=== PATIENT | male | born 1985 | race Caucasian/White ===

== ENCOUNTER 2016-10-28 18:37 | Emergency (ER) | payer MEDICAID ==
[2016-10-28 18:42] VITALS: RESP 16; O2SAT 95
[2016-10-28] MEDS ORDERED: IBUPROFEN 200 MG TAB PO ONE (19:10)
--- NOTE | 2016-10-28 19:14 | EDPHY ---
H & P Stated Complaint: Ran into wall playing [employer];inj to R clavicle,R side of face;no LOC Time Seen by Provider: 10/28/16 19:08 HPI/ROS: CHIEF COMPLAINT: Head injury, right shoulder injury HISTORY OF PRESENT ILLNESS: 31-year-old male arrives via private vehicle complaining of right shoulder and right hip injury after he was playing racquetball, hit the wall with his right shoulder impacted his head. Positive loss of consciousness. Positive amnesia. He is not sure specifically what happened. No midline C-spine pain. No peripheral paresthesia, weakness, numbness, dyspnea, chest pain, midline back pain. REVIEW OF SYSTEMS: A ten point review of systems was performed and is negative with the exception of the items mentioned in the HPI PAST MEDICAL/SURGICAL HISTORY: no anticoagulant use, no relevant medical/ surgical history SOCIAL HISTORY: denies alcohol use at time of incident PHYSICAL EXAM 1) GENERAL: Well-developed, well-nourished, alert and oriented. Appears uncomfortable . Answering questions appropriately. 2) HEAD: Normocephalic, right frontal head injury 3) HEENT: Pupils equal, round, reactive to light bilaterally. Negative Horners. Nasopharynx, oropharynx, clear. No deformity or angulation of nose. No septal hematoma. No rhinorrhea. No oral trauma. Ears bilaterally with normal tympanic membranes. No hemotympanum. No fluid or blood in the external auditory canal. No raccoon eyes. No Gabriel sign. Teeth are normally aligned with no gross malocclusion, TMJ bilaterally nontender, facial bones nontender including the zygomatic arch, maxilla mandible. 4) NECK: No cervical collar is on. Posterior cervical spine is nontender, no stepoff, no effusion. Full range of motion which does not elicit any midline cervical spine pain, no posterior midline tenderness, no step-off. 5) LUNGS: Clear to auscultation bilaterally, no wheezes, no rhonchi, no retractions. No obvious signs of trauma. No chest wall pain. No flaring, no grunting. Moving symmetrically. No crepitus. 6) HEART: Regular rate and rhythm, 7) ABDOMEN: No guarding, no rebound, no focal tenderness, no peritoneal signs, no signs of trauma, no ecchymosis 8) MUSCULOSKELETAL: Right upper extremity: Guarding right shoulder, tender to palpation acromioclavicular joint with noted step-off. Clavicle nontender. Bilateral deltoid sensation equal symmetrical. Neurovascular status normal right upper extremity. Moving all extremities, no focal areas of tenderness, no obvious trauma. 9) BACK: No midline vertebral tenderness, no fluctuance, no step-off, no obvious trauma, no visual or palpable abnormality. 10) SKIN: No laceration. No abrasion 11) NEURO: Awake, alert, and oriented to person, place and time. Answers questions appropriately. There were no obvious focal neurologic abnormalities. No cerebellar dysfunction. Normal steady gait. Upper and lower extremities bilaterally with strength 5 / 5, reflexes 2+. DIFFERENTIAL DIAGNOSIS: [ Not necessarily in any particular order, my differential diagnosis includes, but is not limited to, concussion, skull fracture, intraparenchymal contusion, subarachnoid, subdural and epidural hematoma. The patient understands that this diagnosis is provisional and can never be 100% accurate. - Personal History Current Tetanus Diphtheria and Acellular Pertussis (TDAP): Yes - Medical/Surgical History Hx Asthma: Yes Hx Chronic Respiratory Disease: No Hx Diabetes: No Hx Cardiac Disease: No Hx Renal Disease: No Hx Cirrhosis: No Hx Alcoholism: No Hx HIV/AIDS: No Hx Splenectomy or Spleen Trauma: No Other PMH: Left knee fracture-2007. - Social History Smoking Status: Former smoker Constitutional: Initial Vital Signs Temperature (C) 37.3 C 10/28/16 18:38 Heart Rate 78 10/28/16 18:38 Respiratory Rate 16 10/28/16 18:38 Blood Pressure 123/84 H 10/28/16 18:38 O2 Sat (%) 95 10/28/16 18:38 O2 Delivery Mode Room Air Allergies/Adverse Reactions: No Known Allergies Allergy (Verified 10/28/16 18:43) Home Medications: Medication Instructions Recorded Albuterol Sulfate [Proventil Hfa] 6.7 gm IH 10/28/16 Hydrocodone/APAP 5/325 [[place] 1 tab PO Q6 PRN #15 tab 10/28/16 5/325 (RX)] Medical Decision Making - Diagnostics Imaging: CT Head (Without Contrast) Indication: Trauma. Hit right side of head. Pain. Technique: 5 mm images were obtained of the head without contrast. Multiplanar reformation was performed. Dose reduction techniques were utilized. Findings: No evidence for intracranial mass, hemorrhage, or infarct. The ventricles, sulci, and cisterns are within normal limits for the patient's age. No evidence for an extra-axial fluid collection. No evidence for skull fracture. Paranasal sinuses are clear. Mild soft tissue swelling right frontal parietal scalp. Impression: Mild soft tissue swelling right scalp. Otherwise normal CT head without contrast. Results called and discussed with Cristina Hoff PA-C, at 10/28/2016 20:07 Dictated By: Mau Shelby MD Right shoulder, 3 views. History: Right shoulder pain. Findings: Normal mineralization and alignment. No evidence for acute fracture or dislocation. No significant joint narrowing, periarticular erosion, periarticular spurring. Impression: Unremarkable right shoulder. Dictated By: Mau Shelby MD Images reviewed by myself Procedures: Procedure: Splint A sling was applied by ER manometer technician. After application of the splint I returned and re-examined the patient. The splint was adequately immobilizing the joint and distal to the splint the patient's circulation and sensation were intact. Patient shows no signs of compartment syndrome. Was given orthopedic precautions. - Data Points Medications Given: Discontinued Medications Ibuprofen (Motrin) 800 mg PO EDNOW ONE Stop: 10/28/16 19:11 Last Admin: 10/28/16 19:14 Dose: 800 mg Departure - Departure Disposition: Home, Routine, Self-Care Clinical Impression: Head injury Qualifiers: Encounter type: initial encounter Qualified Code(s): S09.90XA - Unspecified injury of head, initial encounter Right shoulder strain Qualifiers: Encounter type: initial encounter Qualified Code(s): S46.911A - Strain of unspecified muscle, fascia and tendon at shoulder and upper arm level, right arm , initial encounter Condition: Good Instructions: Rotator Cuff Injury (ED), Concussion (ED), Head Injury (ED), Shoulder Sprain (ED) Additional Instructions: ALTHOUGH THERE IS NO EVIDENCE OF SERIOUS HEAD INJURY AT THIS TIME, DELAYED SIGNS CAN APPEAR 24 TO 48 HOURS AFTER INJURY. WE RECOMMEND THAT YOU DESIGNATE A FRIEND OR FAMILY MEMBER TO OBSERVE YOU OVER THE NEXT FEW DAYS TO ENSURE THAT YOUR CONDITION IS PROGRESSING NORMALLY. PLEASE RETURN TO THE EMERGENCY DEPARTMENT (ED) IMMEDIATELY IF YOU HAVE INCREASED HEADACHE, PERSISTENT HEADACHE , VOMITING, WEAKNESS, CONFUSION OR VISUAL PROBLEMS. WE RECOMMEND THAT YOU DO NOT RESUME CONTACT SPORTS OR ACTIVITIES THAT TAKE COORDINATION OR BALANCE SUCH SKIING OR RIDING A BICYCLE UNTIL CLEARED TO DO SO BY YOUR DOCTOR OR BY A NEUROLOGIST. Referrals: Jhony Urias MD [Medical Doctor] - 2-3 days, call for appt. Zeina Junior MD [Medical Doctor] - 2-3 days, call for appt. Prescriptions: Hydrocodone/APAP 5/325 [[place] 5/325 (RX)] 1 tab PO Q6 PRN #15 tab PRN Reason: Pain, Severe
[2016-10-28] MEDS ORDERED: HYDROCOD/APAP 5/325 PREPACK#6 BTL TAKEHOME ONE (20:18)
[2016-10-28 20:36] VITALS: BP 112/65; PULSE 76; TEMP 97.9
== END 2016-10-28 20:36 | disposition home or self-care (01) ==
DX: S46.911A Strain of unspecified muscle, fascia and tendon at shoulder and upper arm level, right arm, initial encounter (principal); S09.90XA Unspecified injury of head, initial encounter; W22.01XA Walked into wall, initial encounter; Y92.39 Other specified sports and athletic area as the place of occurrence of the external cause; Y93.73 Activity, racquet and hand sports
CPT/HCPCS: A4565